=== PATIENT | male | born 1940 | race Caucasian/White ===

== ENCOUNTER 2017-02-27 11:26 | Emergency (ER) | payer OTHER ==
[2017-02-27] MEDS ORDERED: HYDROcodone/ACETAMIN 5-325 MG* 1 TAB PO ONE (14:49)
[2017-02-27 17:06] VITALS: BP 136/79
--- NOTE | 2017-02-27 22:29 | ED ---
Maria C Tse Janilya, scribed for Ced Lopez MD on 02/27/17 at 1446 . ED Suture/Wound Check - HPI Summary HPI Summary: [place] 76 y/o [place] [facility] [place]/ a [place] hand laceration that happened yesterday. Pt states that he tripped and fell, however, he denies LOC and dizziness. Per his daughter, he's had a change in medicine recently, and overall he is frail and weak. She recognizes he has cardiac problems. However, he is mainly here for the laceration repair. PMHx NE 2 years ago and cancer. - History Of Current Complaint Chief Complaint: EDLacSutureRecheck Stated Complaint: WOUND RECHECK Time Seen by Provider: 02/27/17 14:16 Hx Obtained From: Patient Onset/Duration: Sudden Onset, Lasting Days, Still Present Severity: Moderate Pain Intensity: 0 - Allergies/Home Medications Allergies/Adverse Reactions: Allergies Allergy/AdvReac Type Severity Reaction Status Date / Time Ampicillin Allergy Intermediate Rash Verified 02/15/17 15:13 Doxycycline Allergy Intermediate Rash Verified 02/15/17 15:13 PMH/Surg Hx/FS Hx/Imm Hx Previously Healthy: Yes Endocrine/Hematology History: Denies: Hx Diabetes, Hx Systemic Lupus Erythematosus, Hx Thyroid Disease, Hx Anemia Cardiovascular History: Reports: Hx Hypertension Denies: Hx Congestive Heart Failure, Other Cardiovascular Problems/Disorders Respiratory History: Denies: Hx Asthma, Hx Chronic Obstructive Pulmonary Disease (COPD), Other Respiratory Problems/Disorders GI History: Denies: Hx Jaundice, Hx Ulcer, Other GI Disorders History: Reports: Hx Renal Disease, Other Problems/Disorders - nephrectomy Denies: Hx Dialysis Musculoskeletal History: Denies: Hx Rheumatoid Arthritis Sensory History: Reports: Hx Contacts or Glasses Opthamlomology History: Reports: Hx Contacts or Glasses Neurological History: Reports: Other Neuro Impairments/Disorders - "HAND/FOOT SYNDROME" PER PT = PAIN WHEN WALKING Denies: Hx Dementia, Hx Developmental Delay, Hx Headaches, Hx Migraine, Hx Nerve Disease, Hx Seizures, Hx Spinal Cord Injury, Hx Transient Ischemic Attacks (TIA) - Cancer History Cancer Type, Location and Year: renal cell CA-2010 Hx Chemotherapy: Yes - Surgical History Surgery Procedure, Year, and Place: RT KIDNEY REMOVED 2 YEARS AGO AT [facility] [employer]; TONISLLECTOMY VERY LONG TIME AGO; Infectious Disease History: No Infectious Disease History: Denies: Hx Hepatitis, Hx Human Immunodeficiency Virus (HIV), Traveled Outside the [place] in Last 30 Days - Family History Known Family History: Positive: Cardiac Disease - Social History Occupation: Retired Lives: Alone Alcohol Use: None Substance Use Type: Reports: None Hx Tobacco Use: No Smoking Status (MU): Never Smoked Tobacco Review of Systems Negative: Fever Positive: Other - right hand lac All Other Systems Reviewed And Are Negative: Yes Physical Exam Triage Information Reviewed: Yes Vital Signs On Initial Exam: Initial Vitals Temp Pulse Resp BP Pulse Ox 97.8 F 102 16 112/54 100 02/27/17 11:49 02/27/17 11:49 02/27/17 11:49 02/27/17 11:49 02/27/17 11:49 Vital Signs Reviewed: Yes Appearance: Positive: Well-Appearing, No Pain Distress Skin: Positive: Warm, Skin Color Reflects Adequate Perfusion, Dry, Other - skin tear on back of right hand Head/Face: Positive: Normal Head/Face Inspection Eyes: Positive: Normal ENT: Positive: Normal ENT inspection Neck: Positive: Supple, Nontender Respiratory/Lung Sounds: Positive: Clear to Auscultation, Breath Sounds Present Cardiovascular: Positive: RRR Abdomen Description: Positive: Nontender, Soft Bowel Sounds: Positive: Present Musculoskeletal: Positive: Normal Neurological: Positive: Normal Psychiatric: Positive: Affect/Mood Appropriate Diagnostics - Vital Signs Vital Signs Temp Pulse Resp BP Pulse Ox 02/27/17 13:26 99.3 F 105 18 116/58 92 02/27/17 11:49 97.8 F 102 16 112/54 100 - Laboratory Lab Statement: Any lab studies that have been ordered have been reviewed, and results considered in the medical decision making process. - EKG 1329 Cardiac Rate: Tachycardia - 106 bpm EKG Rhythm: Sinus Tachycardia ST Segment: Non-Specific Course/Dx - Course Course Of Treatment: Essentially the patient and family did not want any W/U for the fall and wanted only that his skin tear be taken care of. It was cleaned and I debrided it a little. - Clinical Impression Provider Diagnoses: Skin tear of hand without complication Discharge - Discharge Plan Condition: Stable Disposition: HOME Patient Education Materials: Skin Tear (ED) Referrals: Kenzie Schmidt MD [Primary Care Provider] - 2 Days The documentation as recorded by the Maria C calderon Janilya accurately reflects the service I personally performed and the decisions made by me, Ced Lopez MD.
== END 2017-02-27 17:05 | disposition home or self-care (01) ==
LOC: ED 11:26
DX: S61.412A Laceration without foreign body of left hand, initial encounter (principal); W18.09XA Striking against other object with subsequent fall, initial encounter; Y92.9 Unspecified place or not applicable; I25.2 Old myocardial infarction; Z88.0 Allergy status to penicillin; Z85.53 Personal history of malignant neoplasm of renal pelvis; Z90.5 Acquired absence of kidney
CPT/HCPCS: 93005; 99282